=== PATIENT | male | born 1945 | race Caucasian/White ===

== ENCOUNTER 2025-05-27 22:01 | Emergency (ER) | payer MEDICARE, SELFPAY ==
[2025-05-27 22:05] VITALS: BP 169/72; PULSE 77; TEMP 36.7; O2SAT 94; BMI 21.8
--- NOTE | 2025-05-27 22:51 | XR_ITS ---
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 Atherosclerosis. XR/XR hip LT 2V w/ pelvis IMPRESSION: Rotated left subcapital hip fracture. Impression dictated by: Hiren Mann M.D. 05/27/2025 11:42 PM Dictation Location: [place] [address] Electronically authenticated by: [id number] Y Date: 05/27/2025 23:42
--- NOTE | 2025-05-27 22:52 | ECG_ITS ---
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 Measurements Intervals [place] Rate: 69 P: 30 TN: 190 QRS: 69 QRSD: 78 T: 71 QT: 408 QTc: 428 Interpretive Statements 1100 Sinus rhythm 9110 normal ECG No previous ECG available for comparison Electronically Signed On 05-28-2025 6:51:27 EDT by OSBALDO HOOK M.D.
[2025-05-27] MEDS: MORPHINE SULFATE 4 MG/ML VIAL IV (23:15)
[2025-05-27 23:23] LABS: Hematocrit 42.7 % (42.0-54.0); Hemoglobin 14.2 g/dL (14.0-18.0); Immature Granulocytes Abs Auto 0.06 10^3/uL (0.00-0.03); Immature Granulocytes Pct Auto 0.7 % (0.0-0.5); Lymphocytes Absolute Auto 1.3 10^3/uL (1.2-3.8); Mean Corpuscular HGB Conc 33.3 g/dL (29.9-35.2); Mean Corpuscular Hemoglobin 32.5 pg (25.9-34.0); Mean Corpuscular Volume 97.7 fL (80.0-94.0); Platelet Count 204 10^3/uL (150-450); Red Blood Count 4.37 10^6/uL (4.70-6.10); White Blood Count 8.3 10^3/uL (4.0-11.0)
--- NOTE | 2025-05-27 23:30 | ED_ITS ---
HPI HPI - Fall General Chief Complaint: Fall Stated Complaint: FALL W/ LEFT HIP PAIN Time Seen by Provider: 05/27/25 22:14 Mode of arrival: ambulance History of Present Illness HPI Narrative: This 80-year-old male with a history of tremors is brought to the emergency department by EMS from home. The patient went outside to check on a solar light in his garden and when he turned around he caught his left foot on the grass and fell. He fell onto his left side injuring his left hip. He was unable to ambulate after the fall due to pain in the left hip area. He denies striking his head. He has no neck or back pain. Before the fall he was at his normal baseline Related Data Home Medications ?Medication ?Instructions ?Recorded ?Confirmed alprazolam 0.25 mg tablet mg 05/28/25 amlodipine 10 mg tablet mg 05/28/25 aspirin 81 mg capsule 81 mg PO DAILY 05/28/2505/05 atorvastatin 40 mg tablet mg 05/28/25 buspirone 15 mg tablet mg 05/28/25 clopidogrel 75 mg tablet mg 05/28/25 metoprolol tartrate 25 mg tablet mg 05/28/25 Allergies Allergy/AdvReac Type Severity Reaction Status Date / Time No Known Drug Allergies Allergy Verified 05/27/25 22:05 Opioid HPI Opioid Management Most Recent Pain and Opioid Data: Last Pain Scale 9 Today, 02:38 Last JAN Pain Assessment 05/27/25, 23:15 Review of Systems ROS Status of ROS 10 or more systems reviewed and unremark able except as noted in history and below PFSH PFSH Social History Little interest or pleasure in doing things: not at all Feeling down, depressed, or hopeless: not at all Exam Narrative Exam Narrative: Vital signs and Nursing Notes reviewed: Patient is afebrile with a normal pulse, blood pressure is elevated 169/72, he is not hypoxic with pulse ox of 94% on room air General: Awake, alert, oriented, tremulous with a history of a tremor, GCS 15, no respiratory distress HEENT: Normocephalic atraumatic, mucous membranes are moist and pink, eyes are clear, normal conjunctiva, vision is grossly intact Neck: Supple, no midline bony vertebral tenderness or step-off Chest: Lungs are clear to auscultation with good air entry, there is no wheezing rhonchi or rales appreciated no accessory muscle use, patient is speaking in complete sentences-no chest wall tenderness to palpation CVS: Regular rate and rhythm S1-S2, no murmurs rubs or gallops, pulses are brisk and equal bilaterally ABD: Soft, nondistended, nontender, no rebound guarding or rigidity, bowel sounds are normal, no pulsatile masses appreciated Extremities: Tenderness to the left medial inguinal area with shortening of the left leg, feet are warm and sensate, toenails are hypertrophic, Skin: Normal in appearance without rash,pallor, petechiae or purpura Neuro: No focal deficits, speech is clear, patient has a tremor, he is at his baseline otherwise Constitutional Vital Signs, click to edit/add: Last Vital Signs Temp 98.1 F 05/27/25 22:05 Pulse 88 05/28/25 02:28 Resp 20 05/28/25 02:28 BP 142/72 H 05/28/25 02:28 Pulse Ox 97 05/28/25 02:28 O2 Del Method Room Air 05/27/25 22:05 Course Vital Signs Vital signs: Vital Signs Temperature 98.1 F 05/27/25 22:05 Pulse Rate 77 05/27/25 22:05 Respiratory Rate 18 05/27/25 22:05 Blood Pressure 169/72 H 05/27/25 22:05 Pulse Oximetry 94 L 05/27/25 22:05 Oxygen Delivery Method Room Air 05/27/25 22:05 Temperature 98.1 F 05/27/25 22:05 Pulse Rate 88 05/28/25 02:28 Respiratory Rate 20 05/28/25 02:28 Blood Pressure 142/72 H 05/28/25 02:28 Pulse Oximetry 97 05/28/25 02:28 Oxygen Delivery Method Room Air 05/27/25 22:05 MDM - Fall MDM Narrative Medical decision making narrative: This 80-year-old male with a history of a tremor disorder is brought to the emergency department by EMS after he fell at home. The patient states he went outside to check a solar light and when he was turning around his feet got caught in the grass and he fell onto his left hip. He sustained a rotated subcapital left hip fracture with moderate left hip degeneration noted on the x- ray. He denies striking his head but is on Plavix and aspirin and the CT scan of the head and cervical spine were ordered. A preop workup was ordered. His EKG is a sinus rhythm at 69 bpm with no acute changes. An IV was placed and he was medicated with IV morphine and Zofran. A Juárez catheter was placed for comfort. Routine labs are reviewed. He has a normal white count and hemoglobin. Electrolytes are normal. Liver function tests are normal. I spoke with Dr. Fenton, [facility] who has agreed to see this patient in consult and with Dr Petersen who has accepted the patient for transfer to [facility]. CT scan of the brain and cervical spine were ordered. CT scan of the brain shows mild generalized brain volume loss with mild chronic small vessel ischemic type changes in the white matter, no intracranial hemorrhage mass infarct or edema. No fracture or foreign body. CT scan of the cervical spine shows anatomic alignment of the cervical vertebral bodies with no acute fracture or dislocation with small posterior bulging disc at C3-C4 and C4-C5 and C5-C6 levels with associated mild central canal stenosis. [facility] was updated on the findings of the CT scans and he will be transferred to [facility] by EMS Lab Data Attestation: I reviewed the patient's lab results. Labs: Lab Results 05/27/25 05/27/25 Range/Units 23:06 23:10 WBC 8.3 (4.0-11.0) 10^3/uL RBC 4.37 L (4.70-6.10) 10^6/uL Hgb 14.2 (14.0-18.0) g/dL Hct 42.7 (42.0-54.0) % MCV 97.7 H (80.0-94.0) fL MCH 32.5 (25.9-34.0) pg MCHC 33.3 (29.9-35.2) g/dL RDW 13.3 (11.0-15.0) % Plt Count 204 (150-450) 10^3/uL MPV 9.8 (9.5-13.5) fL Neut % (Auto) 75.0 (43.0-75.0) % Lymph % (Auto) 15.6 L (20.5-60.0) % [place] % (Auto) 7.1 (1.7-12.0) % Eos % (Auto) 1.4 (0.9-7.0) % Baso % (Auto) 0.2 (0.2-2.0) % Neut # (Auto) 6.2 (1.4-6.5) 10^3/uL Lymph # (Auto) 1.3 (1.2-3.8) 10^3/uL [place] # (Auto) 0.6 (0.3-0.8) 10^3/uL Eos # (Auto) 0.1 (0.0-0.7) 10^3/uL Baso # (Auto) 0.0 (0.0-0.1) 10^3/uL Abs Immat Gran (auto) 0.06 H (0.00-0.03) 10^3/uL Imm/Tot Granulo (auto) 0.7 H (0.0-0.5) % Sodium 143 (136-145) mmol/L Potassium 3.7 (3.5-5.1) mmol/L Chloride 105 (98-107) mmol/L Carbon Dioxide 29.3 (21.0-32.0) mmol/L Anion Gap 12.4 BUN 22.0 H (7.0-18.0) mg/dL Creatinine 0.99 (0.70-1.30) mg/dL Est GFR ( Amer) >60 (>=60 mL/min/1.73m^2) Est GFR (Non-Af Amer) >60 (>=60 mL/min/1.73m^2) BUN/Creatinine Ratio 22.2 Glucose 92 (74-106) mg/dL Calcium 9.0 (8.5-10.1) mg/dL Total Bilirubin 1.0 (0.2-1.0) mg/dL AST 28 (15-37) U/L ALT 34 (16-63) U/L Alkaline Phosphatase 64 (46-116) U/L Troponin I High Sens 25.8 (4.0-76.1) pg/mL Total Protein 6.8 (6.4-8.2) g/dL Albumin 3.5 (3.4-5.0) g/dL Globulin 3.3 g/dL Albumin/Globulin Ratio 1.1 ECG Data Attestation: I personally reviewed and interpreted this ECG as follows: (Sinus rhythm at 69 bpm, normal axis, no acute ST segment elevation or T wave inversion) Discharge Plan Discharge Chief Complaint: Fall Clinical Impression: Fall from standing, Closed left hip fracture Patient Disposition: [facility] Time of Disposition Decision: 03:17 Discharge Location: [facility] Condition: Good Mode of Transportation: EMS
[2025-05-27 23:38] LABS: Alanine Aminotransferase 34 U/L (16-63); Albumin Globulin Ratio 1.1; Albumin Level 3.5 g/dL (3.4-5.0); Alkaline Phosphatase 64 U/L (46-116); Anion Gap 12.4; Aspartate Amino Transferase 28 U/L (15-37); Blood Urea Nitrogen 22.0 mg/dL (7.0-18.0); Calcium 9.0 mg/dL (8.5-10.1); Carbon Dioxide 29.3 mmol/L (21.0-32.0); Chloride 105 mmol/L (98-107); Estimated GFR (African America >60 (>=60 mL/min/1.73m^2); Estimated GFR (Non-African Ame >60 (>=60 mL/min/1.73m^2); Globulin 3.3 g/dL; Glucose 92 mg/dL (74-106); Potassium 3.7 mmol/L (3.5-5.1); Sodium 143 mmol/L (136-145); Total Protein 6.8 g/dL (6.4-8.2)
[2025-05-28 02:28] VITALS: BP 142/72; PULSE 88; O2SAT 97
[2025-05-28] MEDS: MORPHINE SULFATE 4 MG/ML VIAL IV (02:38)
--- NOTE | 2025-05-28 03:38 | PC.NURSE ---
Pt going to [facility] [address], accepted by Dr Petersen hospitalist and Dr Fenton [facility]
--- NOTE | 2025-05-28 04:00 | PC.NURSE ---
[facility] ETA 4:40
--- NOTE | 2025-05-28 05:18 | PC.NURSE ---
[facility] here for transport of pt
--- NOTE | 2025-05-28 05:21 | PC.NURSE ---
Report called to Leslie REEDER at [facility]
[2025-05-28] MEDS: MORPHINE SULFATE 2 MG/ML SYRINGE IV (05:29)
[2025-05-28 05:30] VITALS: BP 157/84; PULSE 79; O2SAT 97
== END 2025-05-28 05:45 | disposition short-term general hospital (02) ==
PROVIDERS: Emergency Provider Emergency Medicine; PCP Family Medicine
DX: S72.012A Unspecified intracapsular fracture of left femur, initial encounter for closed fracture (principal); R25.1 Tremor, unspecified; W18.39XA Other fall on same level, initial encounter; Z79.02 Long term (current) use of antithrombotics/antiplatelets; Z79.82 Long term (current) use of aspirin; M50.31 Other cervical disc degeneration, high cervical region; M50.321 Other cervical disc degeneration at C4-C5 level; M50.322 Other cervical disc degeneration at C5-C6 level
CPT/HCPCS: 36415; 70450; 72125; 73502; 80053; 84484; 85025; 93005; 96374; 96375; 96376; 99285; J2270; J2405